=== PATIENT | female | born 1995 | race Caucasian/White ===

== ENCOUNTER 2021-10-01 05:25 | Day surgery (SDC) | payer OTHER ==
[~2021-10-01 05:25] MED LIST: PRENATAL FORMU1 EAC2 PO; PROGESTERONE200 MG PV
[2021-10-01 06:06] LABS: HEMOGLOBIN 13.1 gm/dl (12.3-15.3); RED BLOOD COUNT 4.48 M/UL (4.00-5.10); WHITE BLOOD COUNT 12.5 K/UL (4.5-11.0)
[2021-10-01] MEDS ORDERED: STOOL SOFTENER100 M1 PO (06:22)
--- NOTE | 2021-10-02 09:57 | NUR ---
10/02/2021 0700 T'S 170 DONE PER RUFUS TECH
== END 2021-10-02 09:29 | disposition home or self-care (01) ==
LOC: OR 05:25 → OB 09:23 → OR 10-02 09:29
PROVIDERS: Obstetrics & Gynecology
DX: O34.32 Maternal care for cervical incompetence, second trimester (principal); O60.02 Preterm labor without delivery, second trimester; O99.352 Diseases of the nervous system complicating pregnancy, second trimester; O99.282 Endocrine, nutritional and metabolic diseases complicating pregnancy, second trimester; O99.210 Obesity complicating pregnancy, unspecified trimester; E66.9 Obesity, unspecified; G43.909 Migraine, unspecified, not intractable, without status migrainosus; E03.9 Hypothyroidism, unspecified; Z3A.14 14 weeks gestation of pregnancy; Z20.822 Contact with and (suspected) exposure to COVID-19
CPT/HCPCS: 85025; J0690; J2370; J2405; J2550; J2795; J7120; U0002

== ENCOUNTER 2021-10-16 18:23 | Outpatient (CLI) | payer OTHER ==
[~2021-10-16 18:23] MED LIST changes: +STOOL SOFTENER100 M1 PO
== END 2021-10-16 20:28 | disposition home or self-care (01) ==
LOC: GENOP 18:23
DX: O99.891 Other specified diseases and conditions complicating pregnancy (principal); O98.512 Other viral diseases complicating pregnancy, second trimester; O21.9 Vomiting of pregnancy, unspecified; O99.212 Obesity complicating pregnancy, second trimester; N89.8 Other specified noninflammatory disorders of vagina; R25.2 Cramp and spasm; U07.1 COVID-19; Z3A.16 16 weeks gestation of pregnancy; E66.9 Obesity, unspecified; O16.2 Unspecified maternal hypertension, second trimester
CPT/HCPCS: 76815; 76817; 81001; G0463; U0002

== ENCOUNTER → 2021-11-25 | Outpatient (CLI) | payer OTHER | LOC: GENOP 03:22 | DX: O99.891 Other specified diseases and conditions complicating pregnancy (principal); O34.32 Maternal care for cervical incompetence, second trimester; R10.9 Unspecified abdominal pain; M54.9 Dorsalgia, unspecified; R25.2 Cramp and spasm; Z3A.22 22 weeks gestation of pregnancy | CPT/HCPCS: 81001; G0463 ==

== ENCOUNTER 2022-02-02 12:16 | Outpatient (CLI) | payer OTHER | END 2022-02-02 14:33 | disposition home or self-care (01) | LOC: GENOP 12:16 | DX: O47.03 False labor before 37 completed weeks of gestation, third trimester (principal); O24.415 Gestational diabetes mellitus in pregnancy, controlled by oral hypoglycemic drugs; O10.913 Unspecified pre-existing hypertension complicating pregnancy, third trimester; O99.283 Endocrine, nutritional and metabolic diseases complicating pregnancy, third trimester; E03.9 Hypothyroidism, unspecified; O99.213 Obesity complicating pregnancy, third trimester; E66.9 Obesity, unspecified; Z3A.32 32 weeks gestation of pregnancy; Z79.899 Other long term (current) drug therapy | CPT/HCPCS: 81001; 82962; G0463 ==

== ENCOUNTER → 2022-02-25 | Outpatient (CLI) | payer OTHER | LOC: GENOP 08:47 | DX: Z01.89 Encounter for other specified special examinations (principal); O99.283 Endocrine, nutritional and metabolic diseases complicating pregnancy, third trimester; E03.9 Hypothyroidism, unspecified; O24.415 Gestational diabetes mellitus in pregnancy, controlled by oral hypoglycemic drugs; Z79.84 Long term (current) use of oral hypoglycemic drugs; Z79.899 Other long term (current) drug therapy; Z3A.35 35 weeks gestation of pregnancy | CPT/HCPCS: 59025 ==

== ENCOUNTER 2022-04-02 21:18 | Emergency (ER) | payer OTHER ==
[2022-04-02 23:21] LABS: HEMOGLOBIN 10.8 gm/dl (12.3-15.3); RED BLOOD COUNT 3.93 M/UL (4.00-5.10); WHITE BLOOD COUNT 9.2 K/UL (4.5-11.0)
[2022-04-02 23:42] LABS: BUN/CREATININE RATIO 11 (0-10)
== END 2022-04-03 02:30 | disposition home or self-care (01) ==
LOC: ER1 21:18
PROVIDERS: Physician Assistant Medical
DX: O90.2 Hematoma of obstetric wound (principal); O90.0 Disruption of cesarean delivery wound
CPT/HCPCS: 80053; 85025; 87086; 99283